=== PATIENT | female | born 1940 | race Caucasian/White ===

== ENCOUNTER 2020-07-12 11:33 | Emergency (ER) | payer MEDICARE, OTHER, SELFPAY ==
[2020-07-12 11:35] VITALS: BP 204/95; PULSE 85; RESP 16; TEMP 36.2; O2SAT 96; BMI 28.7
--- NOTE | 2020-07-12 11:54 | CT_ITS ---
STUDY: CT BRAIN WITHOUT CONTRAST REASON FOR EXAM: Female, 79 years old. Trauma RADIATION DOSAGE (If Supplied By Facility): CTDIvol = ( 44.99 ) mGy, DLP = ( 745.49 ) mGycm TECHNIQUE: Transaxial CT imaging of the brain was performed without administration of intravenous contrast material. Individualized dose optimization techniques were used for this CT. COMPARISON: No relevant priors. FINDINGS: There is a small left supraorbital scalp hematoma. Normal calvarium. There is mild cerebral atrophy with widening of the extra-axial spaces and ventricular dilatation. Normal white matter tracts of the cerebral hemispheres. Normal basal ganglia and thalami. Normal brainstem. Normal cerebellum. There is no intracranial hemorrhage. There are no findings of an acute ischemic infarction. Normal visualized paranasal sinuses. CT/Brain/Head without Contrast IMPRESSION: Chronic involutional changes of the brain. Small left supraorbital scalp hematoma. Electronically Signed: Orlin Kidd MD at 12:11 EDT , Service support ,
--- NOTE | 2020-07-12 12:20 | EX.ED.DYSGE1 ---
HPI History of Present Illness Chief Complaint: Head Injury Informant: patient and spouse/S.O. Narrative Narrative: 79-year-old female presents to the emergency department following a fall. She was leaving a store she missed the last step fell forward striking her face on the ground. She states her glasses broke. She notes no change in her vision of the left eye. She notes some left forehead abrasion swelling and ecchymosis. She denies any other injuries. She denies being on any blood thinners. PFSH PFSH Allergy/AdvReac Type Severity Reaction Status Date / Time Sulfa (Sulfonamide Allergy Hives Verified 07/12/20 11:37 Antibiotics) ROS ROS ED Constitutional Constitutional ED: Denies chills or weight loss Eyes Eyes: Denies change in vision or diplopia ENT ENT ED: Denies ear pain, rhinorrhea or sore throat Cardiovascular Cardiovascular: Denies chest pain, orthopnea, palpitations or racing heartbeat Respiratory/Chest Respiratory/Chest: Denies cough, dyspnea or orthopnea Gastrointestinal Gastrointestinal: Denies abdominal pain, diarrhea, nausea or vomiting Genitourinary Genitourinary ED: Denies dysuria, hematuria or urinary frequency Musculoskeletal Musculoskeletal: Denies arthralgias or myalgias Integumentary Reports Abrasions; Denies abscess or rash Neurologic Neurologic: Reports headache(s); Denies weakness Psychiatric Psychiatric: Denies anxiety, depression, suicidal ideation or suicidal thoughts Endocrine Endocrinology: Denies polydipsia, polyphagia or polyuria Allergic/Immunologic Allergic/Immunologic ED: Denies mouth swelling, tongue swelling or urticaria EXAM Physical Exam Const Vital Signs: 07/12/20 11:35 Temperature 97.2 F L Temperature Source Temporal Pulse Rate 85 Respiratory Rate 16 Blood Pressure 204/95 H Blood Pressure Mean 131 Pulse Ox 96 Oxygen Delivery Method Room Air Positive well nourished and well developed General Appearance ED: well developed HEENT Reports normocephalic, head/scalp atraumatic and moist mucous membranes HEENT Narrative: Left periorbital contusion abrasion. There is no subconjunctival hemorrhage or hyphema noted.There is a left forehead abrasion and hematoma trauma Eyes PERRL and EOMs intact bilaterally Neck no lymphadenopathy, supple and no JVD Resp normal respiratory effort and clear to auscultation bilaterally Cardio regular rate, regular rhythm and no murmurs GI normal to inspection, nondistended, normoactive bowel sounds and non-tender Palpation: soft Back/Spine no CVA tenderness and normal ROM Extremity normal to inspection General Extremety ED: Negative for edema General Extremity: Negative for edema Neuro oriented x3 and CN's II-XII intact bilaterally Sensorium / Orientation: alert Motor Exam: strength 5/5 throughout Psych mental status grossly normal Mood & Affect: Negative for depressed or tearful Skin no rashes or lesions noted and no wounds MDM MDM MDM Narrative Medical decision making narrative: Patient's head CT was read by radiology and reviewed myself. No intracranial hemorrhage or fracture. Patient will be discharged home with supportive care return if worsening or concerns Radiography Diagnostic Testing: Radiology Impression Brain CT 07/12/20 11:54 IMPRESSION: Chronic involutional changes of the brain. Small left supraorbital scalp hematoma. Electronically Signed: Orlin Kidd MD at 12:11 EDT , Service support , Discharge Plan Triage Chief Complaint: Head Injury ED Provider: Bernardo Foster Dx/Rx/DC Orders Clinical Impression: Contusion of periorbital region, left, Abrasion of forehead Instructions: ED Facial Contusion, ED Head Injury (Adult) Activity Restrictions/Additional Instructions: I would recommend ice 20-minute sessions 3-4 times per day. Follow-up with primary careAs needed. Return if worsening or concerns. Disposition Disposition: Home, self care
--- NOTE | 2020-07-12 12:40 | CM.ED ---
SW Note Referral Source: Case Find Referral Reason: No PCP(Primary care Provider) listed SW reviewed ED tracker and noted that patient had no listed Primary Care Provider. SW spoke to patient and her . They advised they do have PCP in [place], where they reside. No other issues or concerns voiced. Diana NUNO
[2020-07-12 12:49] VITALS: BP 187/76; PULSE 68; RESP 16; O2SAT 99
== END 2020-07-12 13:03 | disposition home or self-care (01) ==
LOC: ED 12:25
PROVIDERS: Emergency Provider Emergency Medicine
DX: S00.03XA Contusion of scalp, initial encounter (principal); S00.81XA Abrasion of other part of head, initial encounter; W10.9XXA Fall (on) (from) unspecified stairs and steps, initial encounter; Y93.9 Activity, unspecified; Y92.9 Unspecified place or not applicable
CPT/HCPCS: 70450; 99282